=== PATIENT | male | born 1935 | race Caucasian/White ===

== ENCOUNTER 2017-12-27 13:14 | Outpatient (CLI) | payer MEDICARE ==
--- NOTE | 2017-12-27 13:59 | CT ---
CT LUMBAR SPINE NONCONTRAST: HISTORY: Low back pain. Prior surgery. Spinal stimulator. FINDINGS: Images including retroperitoneum show prominent calcification in the arterial structures. Dorsal col umn stimulator leads are shown to enter the posterior aspect of the central canal at the T11-12 level . Mild chronic-appearing wedging of the T11 and T12 vertebral bodies is apparent. Bilateral pedicle screws and vertical rods are in place throughout the lumbar spine. No perihardware lucency. Anterior fixation is also apparent at the lumbosacral junction. T11-12: Circumferential degenerative changes result in moderate stenosis of the central canal. Ther e is severe right and moderate left foraminal stenosis. T12-L1: There is disk space narrowing. Circumferential degenerative changes result in moderate sten osis of the central canal. There is severe right and moderate left foraminal stenosis. L1-2: Circumferential degenerative changes result in mild to moderate stenosis of the central canal. There is moderate bilateral foraminal stenosis. L2-3: Posterior elements are surgically absent. The central canal and neural foramen are patent. L3-4: Posterior elements are surgically absent. The central canal and neural foramen are patent. L4-5: Posterior elements are surgically absent. The central canal and neural foramina are patent. L5-S1: Metallic susceptibility artifact predominantly obscures the neural foramina. Central canal i s favored to be patent. IMPRESSION: 1. Prominent multilevel degenerative changes, involving primarily the upper lumbar spine, and postop erative changes throughout the mid to lower lumbar spine. 2. Atherosclerosis. POS: [facility]
== END 2017-12-27 13:15 | disposition home or self-care (01) ==
LOC: TBSIIMAG 13:14
PROVIDERS: ATTEND Neurological Surgery
DX: M47.26 Other spondylosis with radiculopathy, lumbar region (principal); M48.061 Spinal stenosis, lumbar region without neurogenic claudication; Z98.1 Arthrodesis status; I70.90 Unspecified atherosclerosis
CPT/HCPCS: 72131